=== PATIENT | female | born 2000 | race Two or more races ===

== ENCOUNTER 2022-04-18 21:27 | Emergency (ER) | payer MEDICAID, OTHER ==
[~2022-04-18] VITALS: Ht 170.2 cm; Wt 93.7 kg
[2022-04-18] MEDS ORDERED: DOCU100T15 PO (23:30)
[2022-04-18] MEDS ORDERED: KETOROLAC TROMETH 60MG/2ML VIAL IM ONE (23:30)
[2022-04-18 23:58] VITALS: BP 128/64
== END 2022-04-18 23:58 | disposition home or self-care (01) ==
LOC: ER 21:27
DX: K64.4 Residual hemorrhoidal skin tags (principal); Z79.899 Other long term (current) drug therapy; Z88.1 Allergy status to other antibiotic agents
CPT/HCPCS: 96372; 99283; J1885